=== PATIENT | female | born 2000 ===

== ENCOUNTER 2021-01-16 14:33 | Emergency (ER) | payer OTHER ==
[~2021-01-16] VITALS: Ht 162.6 cm; Wt 59.1 kg
[2021-01-16 16:14] VITALS: BP 110/64; PULSE 65; TEMP 98
== END 2021-01-16 16:26 | disposition home or self-care (01) ==
LOC: COL.ER 14:33
DX: S50.11XA Contusion of right forearm, initial encounter (principal); V03.10XA Pedestrian on foot injured in collision with car, pick-up truck or van in traffic accident, initial encounter; Y99.0 Civilian activity done for income or pay